=== PATIENT | female | born 2005 | race Two or more races ===

== ENCOUNTER 2024-09-21 10:44 | Emergency (ER) | payer OTHER ==
[~2024-09-21] VITALS: Ht 170.2 cm; Wt 54.4 kg
[2024-09-21] MEDS ORDERED: PRENATAL + DHA1 EAC1 PO (11:09)
[2024-09-21 15:08] LABS: HEMATOCRIT 33.9 % (36.0-45.00); HEMOGLOBIN 11.4 g/dL (12.0-15.00); MEAN CELL VOLUME 95.2 fL (80.00-100.00); MEAN CORPUSCULAR HEMOGLOBIN 31.9 pg (27.00-32.0); MEAN CORPUSCULAR HGB CONC 33.5 g/dl (32.0-36.0); PLATELET COUNT 241 K/uL (150-450); RED BLOOD COUNT 3.56 M/uL (4.00-6.00); RED CELL DISTRIBUTION WIDTH 15.2 % (11.5-14.5)
== END 2024-09-21 15:55 | disposition home or self-care (01) ==
LOC: ER 10:45
PROVIDERS: General Practice
DX: O20.8 Other hemorrhage in early pregnancy (principal); Z3A.13 13 weeks gestation of pregnancy

== ENCOUNTER → 2024-11-16 | Emergency (ER) | payer OTHER ==
[~2024-11-16] VITALS: Ht 170.2 cm; Wt 62.6 kg
[~2024-11-16] MED LIST: PRENATAL + DHA1 EAC1 PO
[2024-11-16 00:50] VITALS: BP 121/72; O2SAT 100
== END | disposition left against medical advice (07) ==
LOC: ER 00:39
DX: Z53.21 Procedure and treatment not carried out due to patient leaving prior to being seen by health care provider (principal)